=== PATIENT | male | born 1995 | race Hispanic/Latino ===

== ENCOUNTER 2021-12-22 19:54 | Emergency (ER) | payer OTHER ==
[~2021-12-22] VITALS: Ht 167.6 cm; Wt 68.0 kg
[2021-12-22] MEDS ORDERED: NAPROXEN500 MG PO ×3 (21:33→21:36)
[2021-12-22 22:25] VITALS: BP 119/80
== END 2021-12-22 22:40 | disposition home or self-care (01) | DRG 605 ==
LOC: ED 19:54
PROC: 0HQ1XZZ Repair Face Skin, External Approach (ICD-10-PCS; principal; 2021-12-22)
DX: S01.81XA Laceration without foreign body of other part of head, initial encounter (principal); W20.8XXA Other cause of strike by thrown, projected or falling object, initial encounter; Y93.89 Activity, other specified; Y92.89 Other specified places as the place of occurrence of the external cause; Y99.0 Civilian activity done for income or pay

== ENCOUNTER 2021-12-28 08:06 | Emergency (ER) | payer OTHER ==
[~2021-12-28] VITALS: Ht 167.6 cm; Wt 75.0 kg
[~2021-12-28 08:06] MED LIST: NAPROXEN500 MG PO
[2021-12-28 09:47] VITALS: BP 101/59
== END 2021-12-28 09:50 | disposition home or self-care (01) | DRG 950 ==
LOC: ED 08:06
DX: S01.81XD Laceration without foreign body of other part of head, subsequent encounter (principal); X58.XXXD Exposure to other specified factors, subsequent encounter